=== PATIENT | male | born 1945 | race Caucasian/White ===

== ENCOUNTER → 2016-10-17 | Outpatient (CLI) | payer MEDICARE, BC ==
[~2016-10-17] MED LIST: ASPI-99 PO; GENTAMICIN SULFATE 80 MG/2 ML VIAL ONE; HYDR-3580 PO; PRED1 PO
[2016-10-17 13:34] LABS: ALT (GPT) 17 U/L (12-78); ANION GAP 7 MEQ/L (5-15); AST (GOT) 30 U/L (15-37); BICARBONATE 30.1 MEQ/L (21.0-32.0); BLOOD UREA NITROGEN 30 MG/DL (7-18); CHLORIDE 105 MEQ/L (98-107); GLOMERULAR FILTRATION RATE 74 ML/MIN (>89); GLUCOSE,FASTING 91 MG/DL (74-99); POTASSIUM 4.3 MEQ/L (3.5-5.1); SODIUM (NA) 142 MEQ/L (136-145)
[2016-10-17 13:36] LABS: ALKALINE PHOSPHATASE 102 U/L (45-117); TOTAL BILIRUBIN ADULT 0.5 MG/DL (0.2-1.0); WESTERGREN SEDIMENTATION RATE 7 mm/hr (0-20)
[2016-10-17 13:44] LABS: AUTOMATED NEUTROPHIL # 4.1 TH/MM3 (1.8-7.7); BASOPHIL # 0.1 TH/MM3 (0-0.2); BASOPHIL % 0.8 % (0.0-2.0); EOSINOPHIL # 0.2 TH/MM3 (0-0.4); EOSINOPHIL % 2.4 % (0.0-4.0); HEMATOCRIT 40.8 % (39.0-51.0); HEMO FLAGS DIFF FINAL; LYMPH % 34.9 % (9.0-44.0); LYMPHOCYTE # 2.7 TH/MM3 (1.0-4.8); MEAN CELL VOLUME 92.7 FL (80.0-100.0); MEAN CORPUSCULAR HEMOGLOBIN 32.1 PG (27.0-34.0); MEAN CORPUSCULAR HGB CONC 34.6 % (32.0-36.0); MONO % 8.4 % (0.0-8.0); NEUT % 53.5 % (16.0-70.0); PLATELET COUNT 282 TH/MM3 (150-450); RED CELL DISTRIBUTION WIDTH 13.4 % (11.6-17.2); WHITE BLOOD COUNT 7.7 TH/MM3 (4.0-11.0)
== END ==
LOC: PLAB 10:44
PROVIDERS: ATTEND Family Medicine
DX: M35.3 Polymyalgia rheumatica (principal); M17.11 Unilateral primary osteoarthritis, right knee; Z12.5 Encounter for screening for malignant neoplasm of prostate
CPT/HCPCS: 36415; 80053; 85025; 85652; 86140; G0103; J1580

== ENCOUNTER 2016-10-18 08:49 | Inpatient (IN) | payer MEDICARE, BC ==
[~2016-10-18] VITALS: Ht 182.9 cm; Wt 82.7 kg
[~2016-10-18 08:49] MED LIST changes: -ASPI-99 PO; -GENTAMICIN SULFATE 80 MG/2 ML VIAL ONE; -HYDR-3580 PO
[2016-10-18 08:59] VITALS: BP 112/67; PULSE 64; RESP 10; TEMP 98.7; O2SAT 98
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
[2016-10-18] MEDS ORDERED: MORPHINE SULFATE 4 MG/ML INJ IV PUSH ONE ×2 (10:15→11:30)
[2016-10-18 10:47] LABS: AUTOMATED NEUTROPHIL # 4.7 TH/MM3 (1.8-7.7); BASOPHIL # 0.1 TH/MM3 (0-0.2); BASOPHIL % 0.9 % (0.0-2.0); EOSINOPHIL # 0.1 TH/MM3 (0-0.4); EOSINOPHIL % 1.9 % (0.0-4.0); HEMATOCRIT 42.6 % (39.0-51.0); HEMO FLAGS DIFF FINAL; LYMPH % 27.9 % (9.0-44.0); LYMPHOCYTE # 2.1 TH/MM3 (1.0-4.8); MEAN CELL VOLUME 93.2 FL (80.0-100.0); MEAN CORPUSCULAR HEMOGLOBIN 31.6 PG (27.0-34.0); MEAN CORPUSCULAR HGB CONC 33.9 % (32.0-36.0); MONO % 7.8 % (0.0-8.0); NEUT % 61.5 % (16.0-70.0); PLATELET COUNT 282 TH/MM3 (150-450); RED BLOOD COUNT 4.57 MIL/MM3 (4.50-5.90); RED CELL DISTRIBUTION WIDTH 13.6 % (11.6-17.2); WHITE BLOOD COUNT 7.7 TH/MM3 (4.0-11.0)
[2016-10-18 10:55] LABS: APTT (PATIENT) 24.6 SEC (24.3-30.1); PROTHROMBIN TIME - PATIENT 10.7 SEC (9.8-11.6)
[2016-10-18 11:00] VITALS: BP 90/59; PULSE 59; RESP 17; TEMP 97.7; O2SAT 100
[2016-10-18 11:02] LABS: BICARBONATE 28.1 MEQ/L (21.0-32.0); POTASSIUM 4.2 MEQ/L (3.5-5.1)
[2016-10-18] MEDS ORDERED: ePHEDrine/NS 25 MG/5 ML SYR IV ONE (12:00)
[2016-10-18] MEDS ORDERED: PROPOFOL 200 MG/20 ML AMP IV ONE (12:00)
[2016-10-18] MEDS ORDERED: PHENYLEPH/NS 1000 MCG/10 ML SYR IV ONE (12:00)
[2016-10-18] MEDS ORDERED: ONDANSETRON HCL 4 MG/2 ML VIAL IV PUSH ONE (12:00)
[2016-10-18] MEDS ORDERED: diphenhydrAMINE HCL 25 MG CAP PO PRN (12:15)
[2016-10-18] MEDS ORDERED: SODIUM CHLORIDE 0.9% FLUSH 10 ML FLUSH IV FLUSH PRN (12:15)
[2016-10-18] MEDS ORDERED: ceFAZolin 2 GM PREMIX 50 ML IV SCH ×2 (12:15→12:30)
[2016-10-18] MEDS ORDERED: NALOXONE HCL 0.4 MG/ML AMP IV PRN (12:15)
[2016-10-18] MEDS ORDERED: diphenhydrAMINE HCL 50 MG/ML VIAL IV PRN (12:15)
[2016-10-18] MEDS ORDERED: CHLORHEXIDINE GLUCONATE 4% SOLN 120 ML BTL TOPICAL SCH (12:30)
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
[2016-10-18] MEDS ORDERED: MORPHINE SULFATE 4 MG/ML INJ IV PUSH PRN (13:00)
[2016-10-18 13:07] VITALS: BP 126/71; TEMP 97.8
[2016-10-18 13:32] VITALS: BP 129/62; PULSE 78; RESP 16; TEMP 99.1; O2SAT 96
[2016-10-18] MEDS ORDERED: TRANEXAMIC ACID INJ 795 MG in SODIUM CHLORIDE 0.9% INJ 100 ML IV SCH ×2 (14:00→17:00)
[2016-10-18 15:15] VITALS: BP 135/69; PULSE 84; RESP 17; TEMP 99.3; O2SAT 97
[2016-10-18] MEDS ORDERED: fentaNYL CITRATE 250 MCG/5 ML AMP ONE (19:06)
[2016-10-18] MEDS ORDERED: MIDAZOLAM HCL 2 MG/2 ML VIAL ONE (19:06)
[2016-10-18] MEDS ORDERED: ACETAMINOPHEN 1000 MG/100 ML VIAL IV ONE (19:22)
[2016-10-18 20:00] VITALS: BP 123/75; PULSE 78; RESP 17; TEMP 99.8; O2SAT 98
[2016-10-18] MEDS ORDERED: BUPIVACAINE/EPINEPHRINE 0.25% 50 ML VIAL INFIL ONE (20:18)
[2016-10-18] MEDS ORDERED: SODIUM CHLORIDE 0.9% FLUSH 10 ML FLUSH IV FLUSH SCH (21:00)
[2016-10-18] MEDS ORDERED: BISACODYL 10 MG SUPP RECTAL PRN (21:30)
[2016-10-18] MEDS ORDERED: HYDROmorphone HCL PF 2 MG/ML VIAL IV PRN (21:30)
[2016-10-18] MEDS ORDERED: ASPIRIN EC 81 MG TABEC PO ONE (21:30)
[2016-10-18] MEDS ORDERED: ACETAMINOPHEN/HYDROcodone 325 MG/7.5 MG TAB PO PRN ×2 (21:30)
[2016-10-18] MEDS ORDERED: ONDANSETRON HCL 4 MG/2 ML VIAL IVP PRN (21:30)
[2016-10-18] MEDS ORDERED: ZOLPIDEM TARTRATE 5 MG TAB PO PRN (21:30)
[2016-10-18] MEDS ORDERED: Post-op Orders (for Pharmacy) MISC XX ONE (21:30)
[2016-10-18] MEDS ORDERED: MAGNESIUM HYDROXIDE SUSP 30 ML CUP PO PRN (21:30)
[2016-10-18] MEDS ORDERED: ALUMINUM/MAGNESIUM/SIMETH 30 ML CUP PO PRN (21:30)
[2016-10-18] MEDS ORDERED: SODIUM CHLORIDE 0.9% FLUSH 5 ML FLUSH IVF PRN (21:30)
[2016-10-18] MEDS ORDERED: *MEPERIDINE 25 MG INJ VIAL PERIprocedural Use ONLY ONE (21:51)
[2016-10-18] MEDS: KETOROLAC TROMETHAMINE 30 MG/ML (IVP) VIAL IVP SCH (22:00)
[2016-10-18] MEDS ORDERED: DO NOT ADM ANY ANTICOAGULANT DRUGS PRN (22:15)
--- NOTE | 2016-10-18 22:46 | RADRPT ---
EXAM DATE/TIME: 10/18/2016 21:01 [facility] COMPARISON: FEMUR RIGHT (AP & LAT/2VWS), October 18, 2016, 9:41. INDICATIONS : ORIF right proximal femur. MEDICAL HISTORY : None. SURGICAL HISTORY : None. ENCOUNTER: Subsequent ACUITY: 1 day PAIN SCORE: Non-responsive. LOCATION: Right proximal femur FINDINGS: There is neil fixation across an intertrochanteric fracture of the proximal right femur with anatomic alignment. CONCLUSION: 1. Neil fixation right femur. Bryce Faria MD on October 18, 2016 at 22:43 Board Certified Radiologist. This report was verified electronically.
[2016-10-19] VITALS (8 sets, daily range): BP systolic 93–133; BP diastolic 57–73; PULSE 71–88; RESP 16–18; TEMP 97.5–98.9; O2SAT 94–100
[2016-10-19] MEDS: ceFAZolin 2 GM PREMIX 50 ML IV SCH ×3 (02:16→14:58)
[2016-10-19] MEDS: KETOROLAC TROMETHAMINE 30 MG/ML (IVP) VIAL IVP SCH ×4 (03:49→21:37)
[2016-10-19 05:54] LABS: REVIEW FLAG FINAL
--- NOTE | 2016-10-19 06:10 | PD.ORT.PN ---
Subjective Post Op Day #: 1 Subjective Remarks He is doing well. There is almost no pain. Objective Vitals Vital Signs Date Time Temp Pulse Resp B/P Pulse Ox O2 Delivery O2 Flow Rate FiO2 10/19/16 04:07 98.6 76 17 117/70 98 10/19/16 00:09 98.5 75 17 133/73 99 10/18/16 22:45 68 16 127/71 99 Nasal Cannula 1 10/18/16 22:30 68 18 120/67 99 Nasal Cannula 1 10/18/16 22:15 74 16 116/69 97 Nasal Cannula 2 10/18/16 22:00 71 16 115/72 97 Nasal Cannula 2 10/18/16 21:45 98.5 81 21 112/66 99 Nasal Cannula 2 10/18/16 20:00 99.8 78 17 123/75 98 10/18/16 18:42 Room Air 10/18/16 15:15 99.3 84 17 135/69 97 10/18/16 13:32 99.1 78 16 129/62 96 10/18/16 13:07 97.8 61 17 126/71 100 10/18/16 11:45 17 10/18/16 11:00 59 17 100 Room Air 10/18/16 11:00 97.7 59 17 90/59 100 Room Air 10/18/16 11:00 16 10/18/16 08:59 98.7 64 10 112/67 98 I/O 10/18/16 10/18/16 10/18/16 10/19/16 10/19/16 10/19/16 07:00 15:00 23:00 07:00 15:00 23:00 Intake Total 0 ml 60 ml Output Total 180 ml 350 ml Balance -180 ml -290 ml Intake Oral 0 ml 0 ml Other 60 ml Output Urine Total 180 ml 200 ml Estimated Blood Loss 150 ml # Voids 0 # Bowel Movements 0 0 Result Diagram: 10/19/16 0450 10/18/16 1030 Other Results Laboratory Tests Test 10/18/16 10:30 Prothrombin Time 10.7 SEC (9.8-11.6) Prothromb Time International 1.0 RATIO Ratio Imaging Last 72 hours Impressions Hip and Pelvis X-Ray 10/18/16 0000 Signed Impressions: Service Date/Time: Tuesday, October 18, 2016 09:41 - CONCLUSION: Displaced intertrochanteric fracture Jorge Alberto Rodriguez MD Femur X-Ray 10/18/16 0000 Signed Impressions: Service Date/Time: Tuesday, October 18, 2016 21:01 - CONCLUSION: 1. Neil fixation right femur. Bryce Faria MD Femur X-Ray 10/18/16 0000 Signed Impressions: Service Date/Time: Tuesday, October 18, 2016 09:41 - CONCLUSION: Mildly displaced intertrochanteric fracture. Jorge Alberto Rodriguez MD Objective Remarks He is resting comfortably, supine in bed. The dressings are dry and intact. The neurovascular status is intact. Assessment & Plan Ortho Post Op Day #: 1 Problem List: (1) Intertrochanteric fracture of right femur Plan: Continue postop care. Start PT. Assessment and Plan Condition: Good. Orthopaedically stable. DVT prophylaxis: ASA, TEDs, sequentials. Discharge plans: Home with [facility]. Has appointment. Shanta Kirkland MD (Charles) Oct 19, 2016 06:10
[2016-10-19] MEDS: SODIUM CHLORIDE 0.9% FLUSH 5 ML FLUSH IVF SCH ×2 (07:54→21:00)
--- NOTE | 2016-10-19 07:57 | HHI.FF ---
Face to Face Verification Diagnosis: (1) Intertrochanteric fracture of right femur (2) Status post-operative repair of closed hip fracture Physical Therapy Gait training Hip: Hip fracture, Protocol: Right Right LE Weight Bearing: Toe Touch WB Right LE Range of Motion: Active ROM Nursing Nursing: Dressing changes Dressing Changes: Daily dressing change, Coverderm/Primapore Additional Instructions Remove steristrips on postop day 14. I have seen patient Jd Rich on 10/19/16. My clinical findings support the need for the requested home health care services because: Ltd mobility - disease progression Limited ability to care for self High risk of falls I certify that my clinical findings support that this patient is homebound because: Post-op weakness Unsteady gait/balance Unsafe to leave home unassisted Shanta Kirkland MD (Charles) Oct 19, 2016 07:57
[2016-10-19] MEDS ORDERED: ASPI-99 PO (07:59)
[2016-10-19] MEDS ORDERED: HYDR-3580 PO (07:59)
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
[2016-10-19] MEDS ORDERED: ASPIRIN EC 81 MG TABEC PO ONE (21:30)
[2016-10-19] MEDS: DOCUSATE SODIUM 100 MG CAP PO SCH (21:37)
[2016-10-20 00:09] VITALS: BP 115/64; PULSE 85; RESP 18; TEMP 100.3; O2SAT 96
[2016-10-20 01:30] VITALS: TEMP 99.5
[2016-10-20] MEDS: KETOROLAC TROMETHAMINE 30 MG/ML (IVP) VIAL IVP SCH ×2 (03:38→09:14)
[2016-10-20 04:23] VITALS: BP 105/65; PULSE 90; RESP 18; TEMP 99.5; O2SAT 96
--- NOTE | 2016-10-20 06:45 | PD.ORT.PN ---
Subjective Post Op Day #: 2 Subjective Remarks He is doing well. There is still almost no pain. He walked well with PT and his . Distance Walked 145 feet with PT. Objective Vitals Vital Signs Date Time Temp Pulse Resp B/P Pulse Ox O2 Delivery O2 Flow Rate FiO2 10/20/16 04:23 99.5 90 18 105/65 96 10/20/16 01:30 99.5 10/20/16 00:09 100.3 85 18 115/64 96 10/19/16 20:57 96 21 10/19/16 20:20 98.3 85 18 115/66 96 10/19/16 16:00 98.4 71 16 100/59 96 10/19/16 11:37 98.9 83 16 93/57 95 10/19/16 08:15 94 10/19/16 07:42 97.7 73 16 115/63 96 I/O 10/19/16 10/19/16 10/19/16 10/20/16 10/20/16 10/20/16 07:00 15:00 23:00 07:00 15:00 23:00 Intake Total 240 ml 1010 ml 240 ml 240 ml Output Total 400 ml 300 ml 300 ml Balance -160 ml 1010 ml -60 ml -60 ml Intake Oral 240 ml 960 ml 240 ml 240 ml IV Total 50 ml Output Urine Total 400 ml 300 ml 300 ml # Voids 3 # Bowel Movements 0 0 0 0 Result Diagram: 10/19/16 0450 10/18/16 1030 Imaging Last 72 hours Impressions Hip and Pelvis X-Ray 10/18/16 0000 Signed Impressions: Service Date/Time: Tuesday, October 18, 2016 09:41 - CONCLUSION: Displaced intertrochanteric fracture Jorge Alberto Rodriguez MD Femur X-Ray 10/18/16 0000 Signed Impressions: Service Date/Time: Tuesday, October 18, 2016 21:01 - CONCLUSION: 1. Neil fixation right femur. Bryce Faria MD Femur X-Ray 10/18/16 0000 Signed Impressions: Service Date/Time: Tuesday, October 18, 2016 09:41 - CONCLUSION: Mildly displaced intertrochanteric fracture. Jorge Alberto Rodriguez MD Objective Remarks He is resting comfortably, supine in bed. The dressings are dry and intact. There is no erythema or induration. The neurovascular status is intact. Assessment & Plan Ortho Post Op Day #: 2 Problem List: (1) Intertrochanteric fracture of right femur Plan: Continue postop care and PT. Encouraged to hydrate and use the incentive spirometer. Assessment and Plan Condition: Good. Orthopaedically stable. DVT prophylaxis: ASA, TEDs, sequentials. Discharge plans: Home with [facility]. Call for appointment in one month Rx: [place] 7.5/325. Shanta Kirkland MD (Charles) Oct 20, 2016 06:45
[2016-10-20 07:49] VITALS: BP 112/69; PULSE 82; RESP 16; TEMP 97.4; O2SAT 96
[2016-10-20] MEDS: SODIUM CHLORIDE 0.9% FLUSH 5 ML FLUSH IVF SCH (09:00)
[2016-10-20] MEDS: DOCUSATE SODIUM 100 MG CAP PO SCH (09:14)
[2016-10-20 11:32] VITALS: BP 112/56; PULSE 88; RESP 16; TEMP 97.5; O2SAT 97
[2016-10-20 13:27] VITALS: O2SAT 98
== END 2016-10-20 13:33 | disposition home health service (06) | DRG 482 ==
LOC: NEPE 08:49 → NEDA 11:07 → N06B 13:37
PROVIDERS: ADMIT Orthopaedic Surgery; ATTEND Orthopaedic Surgery
PROC: 0QS606Z Reposition Right Upper Femur with Intramedullary Internal Fixation Device, Open Approach (ICD-10-PCS; principal; 2016-10-18 19:38)
DX: S72.141A Displaced intertrochanteric fracture of right femur, initial encounter for closed fracture (principal); M19.90 Unspecified osteoarthritis, unspecified site; V18.0XXA Pedal cycle driver injured in noncollision transport accident in nontraffic accident, initial encounter; Y93.55 Activity, bike riding; Y99.8 Other external cause status
CPT/HCPCS: 36415; 73502; 73552; 76000; 80048; 80053; 85014; 85018; 85025; 85610; 85652; 85730; 86140; 86850; 86900; 86901; 94150; 96374; C1713; G0103; J0131; J0690; J1580; J1885; J2175; J2250; J2270; J2370; J2405; J3010